=== PATIENT | male | born 1965 | race Hispanic/Latino ===

== ENCOUNTER 2023-01-05 11:37 | Emergency (ER) | payer OTHER ==
[2023-01-05] MEDS ORDERED: FLUORESCEIN SODIUM 1 MG/WRAP ONE (12:23)
[2023-01-05] MEDS ORDERED: TETRACAINE HCL 0.5% 4ML OPTH ONE (12:23)
--- NOTE | 2023-01-05 12:26 | ER ---
Nurse's Notes [facility] Name: Pablo Abbott Age: 57 yrs Sex: Male : 1965 Arrival Date: 01/05/2023 Time: 11:37 Bed 12 Private MD: Diagnosis: Injury of conjunctiva and corneal abrasion without foreign body, right eye Presentation: 01/05 11:58 Chief complaint: Patient states: "I got something in my eye mowing the yard on Thursday aa5 and it's getting worse". Reports being seen in [place] and was told "there was something in his eye" and was told to follow-up with "eye doctor" but eye doctor did not take his insurance. Pt has been using antibiotic drops prescribed. 11:58 Coronavirus screen: At this time, the client does not indicate any symptoms associated aa5 with coronavirus-19. Ebola Screen: Patient denies travel to an Ebola-affected area in the 21 days before illness onset. Initial Sepsis Screen: Does the patient meet any 2 criteria? No. Patient's initial sepsis screen is negative. Does the patient have a suspected source of infection? No. Patient's initial sepsis screen is negative. Risk Assessment: Do you want to hurt yourself or someone else? Patient reports no desire to harm self or others. Onset of symptoms was December 2022. 11:58 Acuity: LOGAN 4 aa5 11:58 Method Of Arrival: Ambulatory aa5 Historical: - Allergies: 12:08 No Known Allergies; aa5 - PMHx: 12:08 None; aa5 - PSHx: 12:08 back; aa5 - Immunization history:: Adult Immunizations unknown. - Social history:: Smoking status: Patient denies any tobacco usage or history of. Screenin:13 [facility] ED Fall Risk Assessment (Adult) History of falling in the last 3 months, mb9 including since admission No falls in past 3 months (0 pts) Confusion or Disorientation No (0 pts) Intoxicated or Sedated No (0 pts) Impaired Gait No (0 pts) Mobility Assist Device Used No (0 pt) Altered Elimination No (0 pt) Score/Fall Risk Level 0 - 2 = Low Risk Oriented to surroundings, Maintained a safe environment, Educated pt \\T\\ family on fall prevention, incl call for assistance when getting out of bed. Abuse screen: Denies threats or abuse. Nutritional screening: No deficits noted. Tuberculosis screening: No symptoms or risk factors identified. Assessment: 12:17 General: Appears in no apparent distress. Pain: Complains of pain in right eye. Neuro: mb9 Lazcano Agitation-Sedation Scale (RASS): 0 - Alert and Calm Level of Consciousness is awake, alert, obeys commands, Oriented to person, place, time, situation, Appropriate for age. Cardiovascular: Patient's skin is warm and dry. Respiratory: Airway is patent Respiratory effort is even, unlabored, Respiratory pattern is regular, symmetrical. EENT: Sclera/Cornea are reddened in outer aspect of conjuctiva of right eye, iris of right eye and inner aspect of conjuctiva of right eye. Derm: Skin is pink, warm \\T\\ dry. Musculoskeletal: Range of motion: intact in all extremities. 12:32 Reassessment: No changes from previously documented assessment. Patient and/or family mb9 updated on plan of care and expected duration. Pain level reassessed. Patient is alert, oriented x 3, equal unlabored respirations, skin warm/dry/pink. Vital Signs: 11:58 BP 133 / 77; Pulse 66; Resp 16 S; Temp 98(TE); Pulse Ox 99% on R/A; Weight 72.57 kg aa5 (R); Height 5 ft. 6 in. (R); 11:58 Body Mass Index 25.82 (72.57 kg, 167.64 cm) aa5 ED Course: 11:43 Patient arrived in ED. im 11:58 Arm band placed on. aa5 12:00 Zully Archer RN is Primary Nurse. mb9 12:01 Lindy Easley FNP-C [facility]. kb 12:01 Jimmy Lopez MD is Attending Physician. kb 12:07 Triage completed. aa5 12:13 Bed in low position. Call light in reach. Side rails up X 1. Client placed on mb9 continuous cardiac and pulse oximetry monitoring. NIBP monitoring applied. 12:14 No provider procedures requiring assistance completed. mb9 12:18 Patient did not have IV access during this emergency room visit. mb9 12:25 Adan Shell MD is Referral Physician. kb Administered Medications: 12:32 Drug: Tetracaine Ophthalmic Drops 0.5 % 1 drops Route: Ophthalmic; Site: right eye; mb9 Medication: 12:14 VIS not applicable for this client. mb9 Outcome: 12:25 Discharge ordered by . bryn 12:38 Discharged to home ambulatory. mb9 12:38 Condition: stable 12:38 Discharge instructions given to patient, Instructed on discharge instructions, follow up and referral plans. Demonstrated understanding of instructions, follow-up care, medications. 12:38 Patient left the ED. mb9 Signatures: Lindy Easley, ISAIAH-C ISAIAH-Monica Villegas, RN RN aa5 Zully Archer RN RN mb9 Shari Lu
--- NOTE | 2023-01-05 12:26 | EDPHYS ---
Physician Documentation [facility] Name: Pablo Abbott Age: 57 yrs Sex: Male : 1965 Arrival Date: 01/05/2023 Time: 11:37 Bed 12 Private MD: ED Physician Jimmy Lopez HPI: 01/05 12:04 This 57 yrs old Male presents to ER via Unassigned with complaints of Eye kb Swelling. 12:04 The patient is experiencing foreign body sensation, redness, to the right eye, caused kb by debris. Onset: The symptoms/episode began/occurred 4 day(s) ago. Duration: the symptoms are continuous. Aggravated by opening eye, Alleviated by nothing. Associated signs and symptoms: Pertinent positives: None. Severity of symptoms: At their worst the symptoms were moderate in the emergency department the symptoms are unchanged. The patient has not experienced similar symptoms in the past. The patient has been recently seen by a physician: the ER physician, out of Town. Pt reports he was mowing on Thursday and felt something go into his right eye. Was seen at an ER in [place] over the weekend and was told to follow up with ophthalmology. Pt was given antibiotic drops. Came in today because symptoms have not gotten any better. Historical: - Allergies: 12:08 No Known Allergies; aa5 - PMHx: 12:08 None; aa5 - PSHx: 12:08 back; aa5 - Immunization history:: Adult Immunizations unknown. - Social history:: Smoking status: Patient denies any tobacco usage or history of. ROS: 12:05 Constitutional: Negative for fever, chills, and weight loss. kb 12:05 Eyes: Positive for foreign body sensation, pain, redness. 12:05 All other systems are negative. Exam: 12:05 Constitutional: This is a well developed, well nourished patient who is awake, alert, kb and in no acute distress. Head/Face: Normocephalic, atraumatic. ENT: Moist Mucous membranes Respiratory: Respirations even and unlabored. No increased work of breathing. Talking in full sentences Skin: Warm, dry with normal turgor. Normal color. MS/ Extremity: Pulses equal, no cyanosis. Neurovascular intact. Full, normal range of motion. Neuro: Awake and alert, GCS 15, oriented to person, place, time, and situation. Moves all extremities. Normal gait. 12:24 Eyes: Periorbital structures: appear normal, Pupils: equal, round, and reactive to kb light and accomodation, Extraocular movements: no acute changes, Conjunctiva: injected, in the right eye, Corneas: abrasion, that is small, on the right, at 3 o'clock. Vital Signs: 11:58 BP 133 / 77; Pulse 66; Resp 16 S; Temp 98(TE); Pulse Ox 99% on R/A; Weight 72.57 kg aa5 (R); Height 5 ft. 6 in. (R); 11:58 Body Mass Index 25.82 (72.57 kg, 167.64 cm) aa5 MDM: 12:01 Patient medically screened. kb 12:06 Differential diagnosis: Corneal abrasion of Corneal ulcer of Foreign body in Acute kb glaucoma in Data reviewed: vital signs, nurses notes. 12:24 Historians other than the Patient: Daughter/Son: son. Counseling: I had a detailed kb discussion with the patient and/or guardian regarding: the historical points, exam findings, and any diagnostic results supporting the discharge/admit diagnosis, the need for outpatient follow up, an opthalmologist, to return to the emergency department if symptoms worsen or persist or if there are any questions or concerns that arise at home. 01/05 12:02 Order name: Eye Tray; Complete Time: 12:16 kb 01/05 12:02 Order name: Fluoresene Opth strip; Complete Time: 12:16 kb Administered Medications: 12:32 Drug: Tetracaine Ophthalmic Drops 0.5 % 1 drops Route: Ophthalmic; Site: right eye; mb9 Disposition Summary: 01/05/23 12:25 Discharge Ordered Location: Home kb Condition: Stable kb Diagnosis - Injury of conjunctiva and corneal abrasion without foreign body, right eye kb Followup: kb - With: Emergency Department - When: As needed - Reason: Worsening of condition Followup: kb - With: Adan Shell MD - When: 1 - 2 days - Reason: Recheck today's complaints Discharge Instructions: - Discharge Summary Sheet kb - Corneal Abrasion, [id number] kb Forms: - Medication Reconciliation Form kb - Thank You Letter kb - Antibiotic Education kb - Prescription Opioid Use kb - Work release form mb9 Signatures: Lindy Easley FNP-C [employer]-Ckb Monica Diaz RN RN aa5 Zully Archer RN RN mb9 Corrections: (The following items were deleted from the chart) 12:06 12:04 Pt reports he was mowing on Thursday and felt something go into his right eye. Was kb seen at an ER in [place] over the weekend and was told to follow up with ophthalmology. Came in today because symptoms have not gotten any better. kb
[2023-01-05 13:00] VITALS: BP 133/77; TEMP 98; O2SAT 99
== END 2023-01-05 12:38 | disposition home or self-care (01) ==
LOC: ER 11:37
DX: S05.01XA Injury of conjunctiva and corneal abrasion without foreign body, right eye, initial encounter (principal)
CPT/HCPCS: 99283